=== PATIENT | female | born 2000 | race Two or more races ===

== ENCOUNTER 2022-11-16 16:10 | Emergency (ER) | payer OTHER ==
[~2022-11-16] VITALS: Ht 160 cm; Wt 87.1 kg
[2022-11-16] MEDS ORDERED: ONDANSETRON ODT4 MG PO (20:30)
== END 2022-11-16 20:59 | disposition home or self-care (01) ==
LOC: ER 16:10 → EMR PED 16:12
DX: R51.9 Headache, unspecified (principal); Z20.822 Contact with and (suspected) exposure to COVID-19

== ENCOUNTER 2024-01-07 12:31 | Emergency (ER) | payer OTHER ==
[~2024-01-07] VITALS: Ht 162.6 cm; Wt 86.2 kg
[~2024-01-07 12:31] MED LIST: ONDANSETRON ODT4 MG PO; ONDANSETRON ODT8 MG PO; TUSNEL LIQUID178 ML PO; ZITHROMAX500 MG PO
[2024-01-07] MEDS ORDERED: FAMOTIDINE/PF 20 MG/2 ML VIAL IV ONE (16:30)
[2024-01-07] MEDS ORDERED: ONDANSETRON HCL 2 MG/ML VIAL IV ONE (16:30)
[2024-01-07] MEDS ORDERED: LACTOBACILLUS ACIDOPHILUS 1 CAP CAP PO ONE ×2 (16:30→16:41)
[2024-01-07] MEDS ORDERED: 0.9 % SODIUM CHLORIDE 1,000 ML IV ONE (16:30)
[2024-01-07] MEDS ORDERED: ONDANSETRON HCL 2 MG/ML VIAL ONE (16:41)
[2024-01-07] MEDS ORDERED: FAMOTIDINE/PF 20 MG/2 ML VIAL ONE (16:42)
[2024-01-07 17:13] LABS: HEMATOCRIT 37.8 % (36.0-45.00); HEMOGLOBIN 12.5 g/dL (12.0-15.00); MEAN CORPUSCULAR HEMOGLOBIN 26.5 pg (27.00-32.0); MEAN CORPUSCULAR HGB CONC 33.2 g/dl (32.0-36.0); PLATELET COUNT 453 K/uL (150-450); RED BLOOD COUNT 4.73 M/uL (4.00-6.00); RED CELL DISTRIBUTION WIDTH 14.1 % (11.5-14.5)
[2024-01-07 17:46] LABS: ALBUMIN 3.5 gm/dL (3.4-5.0); BILIRUBIN TOTAL 0.41 mg/dL (0.3-1.2); CALCIUM 9.6 mg/dL (8.5-10.1); CREATININE SERUM 0.67 mg/dL (0.55-1.02); GFR 111.11; GLOBULINA 4.8 G/DL (2.4-3.5); POTASSIUM 3.95 mEq/L (3.5-5.1); TOTAL PROTEIN 8.3 gm/dL (6.4-8.2); TSH 0.693 uIU/mL (0.358-3.74)
[2024-01-07 17:53] LABS: PH,URINE 5.5 (5.0-8.0); URINE BILIRRUBIN Negative (NEGATIVE); URINE BLOOD Negative; URINE COLOR Dark Yellow; URINE GLUCOSE Negative (NEGATIVE); URINE LEUKOCYTE Trace; URINE NITRATE Negative; URINE PROTEIN Trace (NEGATIVE)
[2024-01-07 17:59] LABS: URINE EPITHELIAL CELLS 27.2 uL (0.0-38.8); URINE RBC 6.8 uL (0.0-20.8); URINE WBC 52.5 uL (0.0-23.2)
[2024-01-07 18:29] LABS: URINE APPEARANCE SL CLOUDY
[2024-01-07] MEDS ORDERED: ONDANSETRON HCL4 MG PO (18:57)
[2024-01-07] MEDS ORDERED: INTESTINEX680 M1 PO (18:57)
[2024-01-07] MEDS ORDERED: PEPCID AC20 MG PO (18:57)
[2024-01-07] MEDS ORDERED: CIPRO500 MG PO (18:57)
== END 2024-01-07 20:21 ==
LOC: ER 12:32
PROVIDERS: Nurse Practitioner Family
DX: K52.89 Other specified noninfective gastroenteritis and colitis (principal)